=== PATIENT | female | born 1975 ===

== ENCOUNTER 2023-02-25 11:50 | Day surgery (SDC) | payer OTHER ==
[~2023-02-25 11:50] MED LIST: Sodium Chloride 0.9% 10 ML Syringe FLUSH PRN; Sodium Chloride 0.9% 2.5 ML Syringe FLUSH PRN; Sodium Chloride 0.9% 20 ML SDV IV PRN
[2023-02-25] MEDS: Lactated Ringers 1,000 ML IV SCH (12:37)
[2023-02-25] MEDS ORDERED: propofoL 50 ML ONE (13:33)
[2023-02-25] MEDS ORDERED: Ondansetron 4 MG/2 ML SDV ONE (13:35)
== END 2023-02-25 14:44 | disposition home or self-care (01) ==
LOC: MW.SDS 11:50
PROVIDERS: ATTEND Surgery
DX: Z12.11 Encounter for screening for malignant neoplasm of colon (principal); D12.5 Benign neoplasm of sigmoid colon; E66.9 Obesity, unspecified; F17.210 Nicotine dependence, cigarettes, uncomplicated; Z68.42 Body mass index [BMI] 45.0-49.9, adult; Z79.899 Other long term (current) drug therapy; Z98.890 Other specified postprocedural states
CPT/HCPCS: 45380; 45385; 81025; J2405; J2704; J7120; 00811